=== PATIENT | male | born 1965 | race African-American/Black ===

== ENCOUNTER 2019-10-08 17:23 | Emergency (ER) | payer OTHER ==
[~2019-10-08] VITALS: Ht 188 cm; Wt 109.1 kg
[~2019-10-08 17:23] MED LIST: ASPI-825 PO
[2019-10-08] MEDS ORDERED: IBUPROFEN 800 MG TABLET PO ONE (18:45)
[2019-10-08 19:45] VITALS: BP 159/99
[2019-10-08] MEDS ORDERED: CEPHALEXIN MONOHYDRATE 500 MG CAPSULE PO ONE (19:45)
[2019-10-08] MEDS ORDERED: SULFAMETHOX/TRIMETH DS 800-160 MG/TABLET PO ONE (19:45)
== END 2019-10-08 20:08 | disposition home or self-care (01) ==
LOC: EMS 17:23
DX: L03.115 Cellulitis of right lower limb (principal); F17.210 Nicotine dependence, cigarettes, uncomplicated; I10 Essential (primary) hypertension

== ENCOUNTER 2020-04-12 16:39 | Emergency (ER) | payer OTHER ==
[~2020-04-12] VITALS: Ht 188 cm; Wt 106.8 kg
[2020-04-12 19:33] VITALS: BP 135/74
== END 2020-04-12 20:08 | disposition home or self-care (01) ==
LOC: EMS 16:39
DX: M17.11 Unilateral primary osteoarthritis, right knee (principal); F17.210 Nicotine dependence, cigarettes, uncomplicated; I10 Essential (primary) hypertension
CPT/HCPCS: 99406

== ENCOUNTER 2020-06-22 02:56 | Emergency (ER) | payer OTHER ==
[~2020-06-22] VITALS: Ht 185.4 cm; Wt 111.4 kg
[2020-06-22 04:15] VITALS: BP 151/88
[2020-06-22 04:24] LABS: APPEARANCE,URINE CLOUDY (CLEAR); BILIRUBIN,URINE NEGATIVE (NEGATIVE); GLUCOSE, URINE (UA) NEGATIVE (NEGATIVE); KETONES,URINE NEGATIVE (NEGATIVE); LEUKOCYTE ESTERASE ,URINE MODERATE (NEGATIVE); NITRATE,URINE POSITIVE (NEGATIVE); OCCULT BLOOD,URINE MODERATE (NEGATIVE); PH,URINE 5.5 (5.0-8.0); PROTEIN,URINE NEGATIVE (NEGATIVE); UROBILINOGEN,URINE 0.2 mg/dL (<=1.0)
[2020-06-22 04:31] LABS: BACTERIA,URINE Many /HPF (None Seen); WBC,URINE 51-100 /HPF (0-5)
== END 2020-06-22 04:44 | disposition home or self-care (01) ==
LOC: EMS 03:00
DX: R33.9 Retention of urine, unspecified (principal); L03.115 Cellulitis of right lower limb; I10 Essential (primary) hypertension; F17.210 Nicotine dependence, cigarettes, uncomplicated
CPT/HCPCS: 51702; 87086; 99284; 81001-TC; 87077-TC; 87186-TC; Z7502

== ENCOUNTER 2020-09-02 10:38 | Emergency (ER) | payer OTHER ==
[~2020-09-02] VITALS: Ht 188 cm; Wt 101.0 kg
[2020-09-02 10:42] VITALS: BP 129/81
== END 2020-09-02 12:58 | disposition left against medical advice (07) ==
LOC: EMS 10:43
DX: Z46.6 Encounter for fitting and adjustment of urinary device (principal); Z53.21 Procedure and treatment not carried out due to patient leaving prior to being seen by health care provider

== ENCOUNTER 2021-11-15 13:03 | Emergency (ER) | payer OTHER ==
[~2021-11-15] VITALS: Ht 185.4 cm; Wt 100.0 kg
[2021-11-15] MEDS ORDERED: IBUPROFEN 600 MG TABLET PO ONE (14:00)
[2021-11-15] MEDS ORDERED: BACLOFEN 10 MG TABLET PO ONE (14:00)
[2021-11-15] MEDS ORDERED: LIDOCAINE 5% TRANSDERMAL PATCH TD ONE (14:00)
[2021-11-15] MEDS ORDERED: BACL10TA PO (15:22)
[2021-11-15] MEDS ORDERED: IBUP-2070 PO (15:22)
[2021-11-15 15:50] VITALS: BP 151/84
== END 2021-11-15 16:03 | disposition home or self-care (01) ==
LOC: EMS 13:04
DX: M54.50 Low back pain, unspecified (principal); I10 Essential (primary) hypertension; F17.210 Nicotine dependence, cigarettes, uncomplicated; Z87.39 Personal history of other diseases of the musculoskeletal system and connective tissue; Z98.890 Other specified postprocedural states; V89.2XXA Person injured in unspecified motor-vehicle accident, traffic, initial encounter; Y93.89 Activity, other specified; Y92.89 Other specified places as the place of occurrence of the external cause; Y99.8 Other external cause status
CPT/HCPCS: 72100; 99284; Z7502; Z7610